=== PATIENT | male | born 1960 ===

== ENCOUNTER 2024-02-28 10:13 | Emergency (ER) | payer SELFPAY ==
[~2024-02-28] VITALS: Ht 167.6 cm; Wt 72.6 kg
[2024-02-28 10:30] VITALS: O2SAT 96
[2024-02-28 10:53] VITALS: BP 139/81; PULSE 70; RESP 16; TEMP 98.4
== END 2024-02-28 11:35 | disposition home or self-care (01) ==
LOC: ER 10:29
DX: S61.213D Laceration without foreign body of left middle finger without damage to nail, subsequent encounter (principal); X58.XXXD Exposure to other specified factors, subsequent encounter
CPT/HCPCS: 99281; Z7610